=== PATIENT | male | born 2000 | race Hispanic/Latino ===

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

== ENCOUNTER 2020-09-15 10:40 | Outpatient (CLI) | payer OTHER ==
[2020-09-15] MEDS ORDERED: Magnevist 469MG/ML 20 ML VIAL ONE (12:28)
== END 2020-09-15 10:41 | disposition home or self-care (01) ==
LOC: BICMRI 10:40
PROVIDERS: ATTEND Nurse Practitioner Acute Care
DX: G44.309 Post-traumatic headache, unspecified, not intractable (principal)
CPT/HCPCS: 70553; A9579

== ENCOUNTER 2021-03-08 18:34 | Emergency (ER) | payer SELFPAY ==
[2021-03-08] MEDS ORDERED: Acetaminophen 500 MG TAB ONE (19:07)
[2021-03-08] MEDS ORDERED: Ketorolac Tromethamine 30 MG/ML VIAL ONE (19:50)
== END 2021-03-08 20:10 | disposition home or self-care (01) ==
LOC: ERS 18:34
DX: U07.1 COVID-19 (principal); R11.2 Nausea with vomiting, unspecified; M54.9 Dorsalgia, unspecified
CPT/HCPCS: 71045; 93005; 96372; J1885

== ENCOUNTER 2023-07-26 10:37 | Emergency (ER) | payer SELFPAY ==
[2023-07-26] MEDS ORDERED: Fluorescein Opthalmic Strip ONE (11:03)
[2023-07-26] MEDS ORDERED: Proparacaine 0.5% Opth 15 ML BOT ONE (11:03)
== END 2023-07-26 11:21 | disposition home or self-care (01) ==
LOC: ERS 10:37
DX: S05.02XA Injury of conjunctiva and corneal abrasion without foreign body, left eye, initial encounter (principal); X58.XXXA Exposure to other specified factors, initial encounter; Y93.89 Activity, other specified; Y92.69 Other specified industrial and construction area as the place of occurrence of the external cause
CPT/HCPCS: 99283